=== PATIENT | female | born 1985 | race Two or more races ===

== ENCOUNTER 2020-03-28 19:11 | Emergency (ER) | payer BC ==
[2020-03-28] MEDS ORDERED: Ketorolac 30 MG/ML SDV IM ONE (19:37)
[2020-03-28] MEDS ORDERED: Orphenadrine 100 MG Tab.ER PO ONE (19:37)
--- NOTE | 2020-03-28 19:55 | EDM.PDOC ---
ED HPI GENERAL MEDICAL PROBLEM - General Chief Complaint: Back Pain or Injury Stated Complaint: LOWER BACK PAIN Time Seen by Provider: 03/28/20 19:32 Source of Information: Reports: Patient, RN Notes Reviewed History Limitations: Reports: Language Barrier ( is present in room to translate from Tajik.) - History of Present Illness INITIAL COMMENTS - FREE TEXT/NARRATIVE: The patient is a 34-year-old female who presents to the ED for evaluation of her lower back pain. She is primarily Tajik-speaking and her does provide translation services. She notes that she has been having back pain since Tuesday, on and off. She is also known to have a cold since Tuesday as well. She states that she sometimes gets back pain when she gets her period, but states her last menstrual period was on March 14. She is also complaining of some right ear pain, her abdomen is tender suprapubically. She denies any frequency, burning or urgency with urination. The notes no sort of injury or accident to the back. She did take Tylenol at around 2 PM today, and this does not seem to be helping much. Patient states that the pain is very strong, and again kind of comes and goes. She is not known to have any sort of kidney stones. She her last bowel movement was yesterday. Patient denies any fever or chills, no nausea or vomiting or diarrhea. She does have a slight cough, but is not getting any junk up with a cough. Treatments SPUDDER: Reports: Acetaminophen Back Pain Score (Numeric/FACES): 10 - Related Data Allergies Allergy/AdvReac Type Severity Reaction Status Date / Time No Known Allergies Allergy Verified 03/28/20 19:33 Home Meds: Home Meds Cefdinir [Omnicef] 300 mg PO BID 7 Days #14 cap 03/28/20 [Rx] Past Medical History Musculoskeletal History: Reports: Back Pain, Chronic Social & Family History - Tobacco Use Smoking Status *Q: Never Smoker - Caffeine Use Caffeine Use: Reports: None - Recreational Drug Use Recreational Drug Use: No ED ROS GENERAL - Review of Systems Review Of Systems: Comprehensive ROS is negative, except as noted in HPI. ED EXAM,LOWER BACK PAIN/INJURY - Physical Exam Exam: See Below Exam Limited By: No Limitations General Appearance: Alert, WD/WN, No Apparent Distress (pt appears to be in pain, but otherwise okay) Eye Exam: Bilateral Eye: EOMI, Normal Inspection, PERRL Ears: Normal External Exam, Normal Canal, Other (there does appear to be bilateral bulging of her TMs) Throat/Mouth: Normal Inspection, Normal Lips, Normal Teeth, Normal Gums, Normal Oropharynx, Normal Voice, No Airway Compromise Head: Atraumatic, Normocephalic Neck: Normal Inspection, Supple, Non-Tender, Full Range of Motion Respiratory/Chest: No Respiratory Distress, Lungs Clear, Normal Breath Sounds, No Accessory Muscle Use, Chest Non-Tender Cardiovascular: Normal Peripheral Pulses, Regular Rate, Rhythm, No Murmur GI/Abdominal: Normal Bowel Sounds, Soft, No Distention, No Mass, Tender (suprapubic tenderness) Back Exam: Normal Inspection, Decreased Range of Motion (d/t pain, this is mainly at the iliac crest level and around SI joint area) Extremities: Normal Inspection, Normal Capillary Refill Neurological: Alert, Normal Mood/Affect, Normal Plantar Flexion, No Motor/Sensory Deficits, Oriented x 3 Psychiatric: Tearful (pt is wimpering and crying a little bit d/t pain) Skin Exam: Warm, Dry, Intact, Normal Color, No Rash Course - Vital Signs Last Recorded V/S: Last Vital Signs Temp 98.2 F 03/28/20 19:38 Pulse 114 H 03/28/20 19:38 Resp 20 03/28/20 19:38 BP 114/73 03/28/20 19:38 Pulse Ox 98 03/28/20 19:38 - Orders/Labs/Meds Orders: Active Orders 24 hr Category Date Time Status CULTURE URINE [RM] Routine Lab 03/28/20 21:02 Ordered Labs: Laboratory Tests 03/28/20 03/28/20 03/28/20 Range/Units 19:58 19:58 20:17 WBC 2.42 L* (3.98-10.04) K/mm3 RBC 4.69 (3.98-5.22) M/mm3 Hgb 14.1 (11.2-15.7) gm/dl Hct 41.8 (34.1-44.9) % MCV 89.1 (79.4-94.8) fl MCH 30.1 (25.6-32.2) pg MCHC 33.7 (32.2-35.5) g/dl RDW Std Deviation 44.2 (36.4-46.3) fL Plt Count 199 (182-369) K/mm3 MPV 8.5 L (9.4-12.3) fl Neut % (Auto) 58.7 (34.0-71.1) % Lymph % (Auto) 29.3 (19.3-51.7) % [place] % (Auto) 11.6 (4.7-12.5) % Eos % (Auto) 0.4 L (0.7-5.8) Baso % (Auto) 0.0 L (0.1-1.2) % Neut # (Auto) 1.42 L (1.56-6.13) K/mm3 Lymph # (Auto) 0.71 L (1.18-3.74) K/mm3 [place] # (Auto) 0.28 (0.24-0.36) K/mm3 Eos # (Auto) 0.01 L (0.04-0.36) K/mm3 Baso # (Auto) 0.00 L (0.01-0.08) K/mm3 Manual Slide Review Abnormal smear Sodium 139 (136-145) mEq/L Potassium 3.6 (3.5-5.1) mEq/L Chloride 102 (98-107) mEq/L Carbon Dioxide 28 (21-32) mEq/L Anion Gap 12.6 (5-15) BUN 9 (7-18) mg/dL Creatinine 0.8 (0.55-1.02) mg/dL Est Cr Clr Drug Dosing 97.27 mL/min Estimated GFR (MDRD) > 60 (>60) mL/min BUN/Creatinine Ratio 11.3 L (14-18) Glucose 109 H (74-106) mg/dL Calcium 8.2 L (8.5-10.1) mg/dL Total Bilirubin 0.3 (0.2-1.0) mg/dL AST 41 H (15-37) U/L ALT 53 (14-59) U/L Alkaline Phosphatase 54 (46-116) U/L Total Protein 7.7 (6.4-8.2) g/dl Albumin 3.4 (3.4-5.0) g/dl Globulin 4.3 gm/dL Albumin/Globulin Ratio 0.8 L (1-2) Urine Color Yellow (Yellow) Urine Appearance Clear (Clear) Urine pH 6.5 (5.0-8.0) Ur Specific [place] 1.025 (1.005-1.030) Urine Protein Trace H (Negative) Urine Glucose (UA) Negative (Negative) Urine Ketones Trace H (Negative) Urine Occult Blood Trace-intact H (Negative) Urine Nitrite Negative (Negative) Urine Bilirubin Negative (Negative) Urine Urobilinogen 1.0 (0.2-1.0) Ur Leukocyte Esterase 1+ H (Negative) U Hyaline Cast (Auto) 0-5 (0-5) /lpf Urine RBC 0-5 (0-5) /hpf Urine WBC 10-20 H (0-5) /hpf Ur Squamous Epith Cells 20-30 H (0-5) /hpf Urine Bacteria Moderate H (FEW) /hpf Urine Mucus Few (FEW) /hpf Urine HCG, Qual (NEGATIVE) 03/28/20 Range/Units 20:17 WBC (3.98-10.04) K/mm3 RBC (3.98-5.22) M/mm3 Hgb (11.2-15.7) gm/dl Hct (34.1-44.9) % MCV (79.4-94.8) fl MCH (25.6-32.2) pg MCHC (32.2-35.5) g/dl RDW Std Deviation (36.4-46.3) fL Plt Count (182-369) K/mm3 MPV (9.4-12.3) fl Neut % (Auto) (34.0-71.1) % Lymph % (Auto) (19.3-51.7) % [place] % (Auto) (4.7-12.5) % Eos % (Auto) (0.7-5.8) Baso % (Auto) (0.1-1.2) % Neut # (Auto) (1.56-6.13) K/mm3 Lymph # (Auto) (1.18-3.74) K/mm3 [place] # (Auto) (0.24-0.36) K/mm3 Eos # (Auto) (0.04-0.36) K/mm3 Baso # (Auto) (0.01-0.08) K/mm3 Manual Slide Review Sodium (136-145) mEq/L Potassium (3.5-5.1) mEq/L Chloride (98-107) mEq/L Carbon Dioxide (21-32) mEq/L Anion Gap (5-15) BUN (7-18) mg/dL Creatinine (0.55-1.02) mg/dL Est Cr Clr Drug Dosing mL/min Estimated GFR (MDRD) (>60) mL/min BUN/Creatinine Ratio (14-18) Glucose (74-106) mg/dL Calcium (8.5-10.1) mg/dL Total Bilirubin (0.2-1.0) mg/dL AST (15-37) U/L ALT (14-59) U/L Alkaline Phosphatase (46-116) U/L Total Protein (6.4-8.2) g/dl Albumin (3.4-5.0) g/dl Globulin gm/dL Albumin/Globulin Ratio (1-2) Urine Color (Yellow) Urine Appearance (Clear) Urine pH (5.0-8.0) Ur Specific [place] (1.005-1.030) Urine Protein (Negative) Urine Glucose (UA) (Negative) Urine Ketones (Negative) Urine Occult Blood (Negative) Urine Nitrite (Negative) Urine Bilirubin (Negative) Urine Urobilinogen (0.2-1.0) Ur Leukocyte Esterase (Negative) U Hyaline Cast (Auto) (0-5) /lpf Urine RBC (0-5) /hpf Urine WBC (0-5) /hpf Ur Squamous Epith Cells (0-5) /hpf Urine Bacteria (FEW) /hpf Urine Mucus (FEW) /hpf Urine HCG, Qual Negative (NEGATIVE) Meds: Medications Discontinued Medications Generic Name Dose Route Start Last Admin Trade Name Yasmine PRN Reason Stop Dose Admin Cefdinir 300 mg 03/28/20 21:02 03/28/20 21:13 Omnicef PO 03/28/20 21:03 300 mg ONETIME ONE Administration Ketorolac Tromethamine 60 mg 03/28/20 19:37 03/28/20 19:57 Toradol IM 03/28/20 19:38 60 mg ONETIME ONE Administration Magnesium Citrate 296 ml 03/28/20 21:47 Citrate Of Magnesia PO 03/28/20 21:48 ONETIME ONE Orphenadrine Citrate 100 mg 03/28/20 19:37 03/28/20 19:58 Norflex PO 03/28/20 19:38 100 mg ONETIME ONE Administration - Re-Assessments/Exams Free Text/Narrative Re-Assessment/Exam: 03/28/20 19:57 Patient presents to the ED for evaluation of her lower back pain. I do highly suspect possibility of UTI in nature. She may also have kidney stones, will await urinalysis for further imaging probabilities. Patient's bilateral TMs are slightly bulge, which leads me to believe she could have an otitis media and she states that her right ear does hurt. She is also had a cold as well. Patient will be given Toradol and Norflex for her back pain at this time. 03/28/20 21:48 The patient's laboratory evaluation has come back, her white blood cell count is mildly low, will have her recheck this with her regular provider in a week or 2 when she is feeling better. This could be low due to a viral cold that she has. Metabolic panel looks essentially unremarkable, her urinalysis does show that she has a slight UTI. She will be started on Omnicef twice daily x7 days. CT demonstrates a 3.7 cm cyst within the left ovary, mild increased stool throughout the colon. No renal calculi ureteral dilatation or ureteral stone seen. Patient will be discharged home with Omnicef, and a bottle of mag citrate for management. She can take ibuprofen as needed for pain management. Departure - Departure Time of Disposition: 21:49 Disposition: Home, Self-Care 01 Condition: Good Clinical Impression: UTI (urinary tract infection) Qualifiers: Urinary tract infection type: acute cystitis Hematuria presence: without hematuria Qualified Code(s): N30.00 - Acute cystitis without hematuria Constipation Qualifiers: Constipation type: other constipation type Qualified Code(s): K59.09 - Other constipation Ovarian cyst Qualifiers: Laterality: left Qualified Code(s): N83.202 - Unspecified ovarian cyst, left side - Discharge Information *PRESCRIPTION DRUG MONITORING PROGRAM REVIEWED*: No *COPY OF PRESCRIPTION DRUG MONITORING REPORT IN PATIENT DELMI: No Prescriptions: Cefdinir [Omnicef] 300 mg PO BID 7 Days #14 cap Instructions: Urinary Tract Infection, Adult, [id number] Forms: ED Department Discharge Additional Instructions: You have been evaluated in the ED for your back pain. Your urinalysis was consistent with an acute urinary tract infection. Your urine was sent for culture, and you will be notified if you should need a change in your antibiotic. This may take up to [address] did demonstrate 3.7 cm cyst within the left ovary. You have mild increased stool throughout the colon, which is consistent with constipation. You were given a bottle of magnesium citrate for this, you may start taking this tomorrow. Take one half bottle, wait a few hours if you not have a rather large bowel movement please repeat with the last half bottle. The ovarian cyst is an incidental finding, and can be followed up with your primary or [facility] for management. This should not cause you any major issues however. There was no sign of any sort of kidney stone apparent on today's exam. You have been given a prescription for cefdinir, 300 mg 1 tablet 2 times a day for 7 days. This has been electronically sent to the [place] pharmacy located in in the [employer] [facility]. You can take 600 mg ibuprofen every 6 hours as needed for further discomfort. Do not exceed more than 3200mg in a 24-hour time span. Please increase your oral fluid intake and try to stay adequately hydrated. Your white blood cell count was low at this visit, sometimes this can be low due to a viral illness (like your cold), recommend you follow-up with your primary care provider, sometime next week when you are feeling better for re-check of your labs to make sure that this level is getting back to normal as expected. Please return to the ED if your symptoms change or worsen. Sepsis Event Note (ED) - Evaluation Sepsis Screening Result: No Definite Risk - Focused Exam Vital Signs: Vital Signs Temp Pulse Resp BP Pulse Ox 03/28/20 19:38 98.2 F 114 H 20 114/73 98 - My Orders Last 24 Hours: My Active Orders 03/28/20 21:02 CULTURE URINE [RM] Routine - Assessment/Plan Last 24 Hours: My Active Orders 03/28/20 21:02 CULTURE URINE [RM] Routine
[2020-03-28] MEDS ORDERED: Cefdinir 300 MG Cap PO ONE (21:02)
--- NOTE | 2020-03-28 21:43 | CT ---
CT abdomen and pelvis Technique: Multiple axial sections were obtained from above the dome of the diaphragm inferiorly through the pubic symphysis. Intravenous and oral contrast was not utilized. Findings: Kidneys show no abnormal calcifications. No inflammatory change is seen around the kidneys. No ureteral dilatation is seen. No ureteral calcifications are seen. Visualized lung bases show slight nodularity along the left pleural surface which are incompletely included. Given their multiplicity these are most likely benign. Noncontrast appearance of the liver and spleen shows no focal abnormality. Adrenal glands show no nodule. Pancreas shows no abnormality. Gallbladder contains no calcified gallstones. Aorta shows no aneurysm. No retroperitoneal adenopathy or mesenteric abnormalities are seen. Appendix is seen which is normal. Slight increased stool throughout the colon is noted. Cyst is noted within the left ovary measuring approximately 3.7 cm. No free fluid or inflammatory change is seen. Impression: 1. 3.7 cm cyst within the left ovary. 2. Mild increased stool throughout the colon is noted. 3. No renal calculi, ureteral dilatation or ureteral stone is seen. 4. Other findings believed to be incidental as described above. Diagnostic code #2 This report was dictated in MDT
[2020-03-28] MEDS ORDERED: Magnesium Citrate Solution 296 ML Bottle PO ONE (21:47)
== END 2020-03-28 22:05 | disposition home or self-care (01) ==
LOC: JD.ED 19:11
DX: N30.00 Acute cystitis without hematuria (principal); K59.09 Other constipation; N83.202 Unspecified ovarian cyst, left side
CPT/HCPCS: 36415; 74176; 80053; 81001; 81025; 85025; 87086; 96372; 99284; A9270; J1885